=== PATIENT | female | born 1980 | race Caucasian/White ===

== ENCOUNTER 2016-06-03 07:19 | Emergency (ER) | payer OTHER, MEDICAID ==
[~2016-06-03] VITALS: Ht 157.5 cm; Wt 97.5 kg
[~2016-06-03 07:19] MED LIST: ADVAIR DISKUS1 DS2; ALBUTEROL0.09 MG/A4 IH; MOTRIN600 M1; NORCO 5/325 MG1 TAB PO; SINGULAIR10 MG PO; TRAMADOL50 MG; VICODIN 5/500 M1 TAB
[2016-06-03 07:28] VITALS: BP 150/83
--- NOTE | 2016-06-03 07:30 | NUR ---
Patient to bed 06.
--- NOTE | 2016-06-03 07:39 | NUR ---
36/F TO ED WITH C/O RLQ ABD PAIN STARTING THIS MORNING WITH NAUSEA AND VOMITING. ACHING PAIN 10/10. BOWEL SOUNDS PRESENT X4Q. LUNGS CLEAR BILAT. HR EVEN AND REGULAR. AAOX4. VSS. NO SIGNS OF DISTRESS. PT PLACED IN GOWN, BED IN LOWEST POSITION FOR SAFETY. WILL CONTINUE TO MONITOR. ERMD TO ASSESS PT.
[2016-06-03] MEDS ORDERED: MORPHINE SULFATE 10 MG/ML SYR IM ONE (07:40)
[2016-06-03] MEDS ORDERED: ONDANSETRON 4 MG/2 ML VIAL IVP ONE (07:40)
[2016-06-03] MEDS ORDERED: NACL 0.9% 1,000 ML IV SCH (07:40)
--- NOTE | 2016-06-03 07:40 | NUR ---
Dr. Vallecillo evaluating patient at bedside.
--- NOTE | 2016-06-03 08:02 | NUR ---
ULTRASOUND AT BEDSIDE
[2016-06-03] MEDS ORDERED: HYDROcodone/APAP 7.5/325 MG 1 TAB PO ONE (09:00)
--- NOTE | 2016-06-03 10:27 | NUR ---
Patient discharged with v/s stable. Written and verbal after care instructions given and explained. Patient alert, oriented and verbalized understanding of instructions. Ambulatory with steady gait. All questions addressed prior to discharge. ID band removed. Patient advised to follow up with PMD. Rx of NORCO AND ZOFRAN given. Patient educated on indication of medication including possible reaction and side effects. Opportunity to ask questions provided and answered.
[2016-06-03 10:28] VITALS: BP 142/77
--- NOTE | 2016-06-08 12:24 | NUR ---
6MG MORPHINE GIVEN IM ORDERED AT 0753 WITH NO ADVERSE DRUG REACTIONS
== END 2016-06-03 10:27 | disposition home or self-care (01) ==
LOC: MED 07:23
DX: R10.11 Right upper quadrant pain (principal); Z79.899 Other long term (current) drug therapy; J45.909 Unspecified asthma, uncomplicated
CPT/HCPCS: 36415; 76705; 80053; 81001; 83690; 84703; 85025; 96361; 96372; 96374; 99285; J2270; J2405; J7030; Q0092